=== PATIENT | female | born 1960 | race Caucasian/White ===

== ENCOUNTER 2023-10-25 14:21 | Emergency (ER) | payer OTHER ==
[~2023-10-25] VITALS: Ht 162.5 cm; Wt 81.6 kg
[~2023-10-25 14:21] MED LIST: AUGMENTIN 875 M1 TAB PO; DARVOCET N 1001 TAB PO; DAYPRO600 M1 PO; ROBAXIN750 MG PO; VICODIN 500 MG-1 TAB PO
[2023-10-25 14:51] LABS: BASO # 0.1 10*3/uL (0.0-0.1); EOS # 0.1 10*3/uL (0.0-0.4); EOS % 1.7 % (1.0-4.0); HEMATOCRIT 40.7 % (37.0-47.0); LYMPH # 2.4 10*3/uL (1.3-4.4); LYMPH % 40.4 % (27.0-41.0); MEAN CELL VOLUME 97.8 fl (81.0-99.0); MEAN CORPUSCULAR HGB 33.2 pg (27.0-31.0); MEAN CORPUSCULAR HGB CONC 33.9 g/dl (33.0-37.0); MEAN PLATELET VOLUME 9.4 fl (9.6-12.3); MONO # 0.4 10*3/uL (0.1-1.0); MONO % 6.2 % (3.0-9.0); NEUT % 50.4 % (47.0-73.0); PLATELET COUNT AUTOMATED 277 10*3/uL (130-400); RED BLOOD COUNT 4.16 10*6/uL (4.10-5.10); RED CELL DISTRI WIDTH 12.1 % (0-14.5)
[2023-10-25 15:07] LABS: ACT PARTIAL THROMBO TIME 27.4 SECONDS (20.0-32.1)
[2023-10-25 15:12] LABS: ALKALINE PHOSPHATASE 72 U/L (46-116); BUN 13 mg/dl (9-23); CHLORIDE 108 mmol/L (98-107); SGPT/ALT 35 U/L (5-49); TOTAL PROTEIN 6.7 gm/dL (6.0-8.0)
[2023-10-25] MEDS ORDERED: Ketorolac Tromethamine 60 MG/2 ML VIAL IM ONE (17:55)
[2023-10-25] MEDS ORDERED: MELOXICAM15 MG PO (18:21)
== END 2023-10-25 18:27 | disposition home or self-care (01) ==
LOC: ED 14:21
PROVIDERS: Internal Medicine
DX: M94.0 Chondrocostal junction syndrome [Tietze] (principal); R42 Dizziness and giddiness